=== PATIENT | male | born 1975 | race Caucasian/White ===

== ENCOUNTER 2017-05-14 21:40 | Inpatient (IN) | payer BC, OTHER ==
[~2017-05-14] VITALS: Ht 175.3 cm; Wt 70.0 kg
[~2017-05-14 21:40] MED LIST: ALEVE220 MG PO; CELEXA20 MG PO; DESYREL100 MG PO; FLEXERIL10 MG PO; LORTAB 10-3251 EACH PO; MEN'S MULTI-VI1 EACH PO; MINIPRESS1 MG PO; MOTRIN600 MG PO; REMERON30 M2 PO; SEROQUEL100 MG PO
[2017-05-15 06:05] VITALS: BP 142/98
[2017-05-15 16:47] VITALS: BP 135/74
[2017-05-15 20:01] VITALS: BP 138/87
[2017-05-15 23:38] VITALS: BP 117/62
[2017-05-16 03:48] VITALS: BP 118/57
[2017-05-16 07:51] VITALS: BP 157/94
== END 2017-05-16 11:12 | disposition home or self-care (01) | DRG 455 ==
LOC: ENRESERV 21:40 → 2SOUTH 05-15 05:13 → ENRESERV 05-15 15:13 → 3EAST 05-15 15:29 → 2SOUTH 05-15 15:46 → 3EAST 05-16 11:12
DX: M51.17 Intervertebral disc disorders with radiculopathy, lumbosacral region (principal); M48.061 Spinal stenosis, lumbar region without neurogenic claudication; F31.9 Bipolar disorder, unspecified; Z87.891 Personal history of nicotine dependence
CPT/HCPCS: 72100; 76000; 86850; 86900; 86901; 95938; C1713; J0330; J0690; J1170; J2250; J2270; J2405; J3010; J3370; J3480; S0020